=== PATIENT | male | born 1960 | race Caucasian/White ===

== ENCOUNTER 2016-11-03 16:17 | Inpatient (IN) | payer BC, OTHER ==
[~2016-11-03] VITALS: Ht 182.9 cm; Wt 104.0 kg
[2016-11-03 16:25] VITALS: Ht 182.9 cm; Wt 104.0 kg
--- NOTE | 2016-11-03 16:43 | ERA ---
ER Documentation Chief Complaint Date/Time DATE: 11/03/16 TIME: 16:42 Chief Complaint LEFT HAND/ARM PAIN HPI The patient is a 56-year-old male, presenting to the ER because of left index and left thumb pain for the last 5 days after he had left index finger surgery 6 days ago by the orthopedist . He was advised by his orthopedist to go to the ER because of severe pain and fever. The pain is 10/10, worse with trying to extend the index finger. He did complain of subjective fever, denies neck pain, chest pain, abdominal pain, vomiting, diarrhea, constipation. He does not smoke, drink Past medical history: None Past surgical history: Neck surgery in 2012 ROS All systems reviewed and are negative except as per history of present illness. Medications Home Meds Reported Medications Hydrocodone/Acetaminophen ([place] 10-325 Tablet) 1 Each Tablet, 1 EACH PO DAILY Y for PRN, TAB 11/03/16 Allergies Allergies: Coded Allergies: No Known Allergy (Unverified , 11/03/16) Physical Exam Vitals Vital Signs Date Time Temp Pulse Resp B/P Pulse Ox O2 Delivery O2 Flow Rate FiO2 11/03/16 16:25 98.8 90 19 147/80 98 Physical Exam Const: No acute distress. Head: Atraumatic. Eyes: Normal Conjunctiva. ENT: Normal External Ears, Nose and Mouth. Neck: Full range of motion. No meningismus. Resp: Clear to auscultation bilaterally. Cardio: Regular rate and rhythm, no murmurs. Abd: Soft, non distended, normal bowel sounds, non tender. Skin: No petechiae or rashes. Back: No midline or flank tenderness. Ext: Left hand is edematous, erythematous, warm to touch. he is unable to extend or flex the index and the thumb finger Neur: Awake and alert. No focal deficit Psych: Normal Mood and Affect. Result Diagram: 11/03/16 1700 11/03/16 1700 Results 24 hrs Laboratory Tests Test 11/03/16 17:00 Activated Partial Thromboplast Time 33.1Sec Alanine Aminotransferase (ALT/SGPT) 20IU/L Albumin 4.4g/dl Albumin/Globulin Ratio 1.15 Alkaline Phosphatase 53IU/L Anion Gap 16 Aspartate Amino Transf (AST/SGOT) 26IU/L Basophils # 0.010^3/ul Basophils % 0.3% Blood Urea Nitrogen 14mg/dl Calcium Level 9.9mg/dl Carbon Dioxide Level 30mmol/L Chloride Level 96mmol/L Creatinine 1.14mg/dl Direct Bilirubin 0.00mg/dl Eosinophils # 0.110^3/ul Eosinophils % 1.0% Globulin 3.80g/dl Glucose Level 101mg/dl Hematocrit 42.8% Hemoglobin 14.6g/dl INR International Normalized Ratio 1.00 Indirect Bilirubin 0.8mg/dl Lactic Acid Level 0.9mmol/L Lymphocytes # 1.610^3/ul Lymphocytes % 19.3% Mean Corpuscular Hemoglobin 31.3pg Mean Corpuscular Hemoglobin Concent 34.1g/dl Mean Corpuscular Volume 91.7fl Mean Platelet Volume 8.9fl Monocytes # 0.610^3/ul Monocytes % 7.0% Neutrophils # 6.010^3/ul Neutrophils % 72.4% Nucleated Red Blood Cells # 0.010^3/ul Nucleated Red Blood Cells % 0.0/100WBC Platelet Count 50215^3/UL Potassium Level 4.4mmol/L Prothrombin Time 13.2Sec Prothrombin Time Ratio 1.0 Red Blood Count 4.6610^6/ul Red Cell Distribution Width 13.4% Sodium Level 138mmol/L Total Bilirubin 0.8mg/dl Total Protein 8.2g/dl Urine Bilirubin NEGATIVE Urine Clarity CLEAR Urine Color LT. YELLOW Urine Glucose NEGATIVE% Urine Hemoglobin NEGATIVE Urine Ketones NEGATIVE Urine Leukocyte Esterase TRACE Urine Microscopic RBC 0-2/HPF Urine Microscopic WBC 0-2/HPF Urine Nitrite NEGATIVE Urine Specific [place] 1.010 Urine Squamous Epithelial Cells RARE Urine Total Protein NEGATIVE Urine Urobilinogen 0.2 E.U./dL Urine pH 6.0 White Blood Count 8.310^3/ul Current Medications Medications (Trade) Dose Ordered Sig/Gisele Route PRN Reason Start Time Stop Time Status Last Admin Dose Admin Morphine Sulfate (morphine) 4 mg ONCE STAT IV 11/03/16 16:47 11/03/16 16:50 DC 11/03/16 17:07 Ondansetron HCl (Zofran Inj) 4 mg ONCE STAT IV 11/03/16 16:47 11/03/16 16:50 DC 11/03/16 17:07 Vancomycin HCl 1 ea 1 ea X 1 ONLY IN E.R. STAT XX 11/03/16 16:47 11/03/16 16:50 DC Piperacillin Sod/ Tazobactam Sod 100 ml @ 200 mls/hr ONCE ONCE IVPB 11/03/16 17:00 11/03/16 17:29 DC 11/03/16 17:06 Vancomycin HCl/ Sodium Chloride (Vancocin/NS) 500 ml @ 125 mls/hr ONCE ONCE IVPB 11/03/16 20:00 11/03/16 23:59 Procedures/MDM EKG: Read by emergency physician Rate/Rhythm: Normal Sinus Rhythm 80 beats per min QRS, ST, T-waves: No ST elevation, no T wave inversion Impression: Normal EKG [place] [address] Radiology Main Line: [phone] DIAGNOSTIC IMAGING REPORT Patient: GELY CARMICHAEL : 1960 Age: 56 Sex: M MR #: [id number] DOS: 11/03/16 1647 Ordering MD: DAVID CHONG MD Location: E/R Room/Bed: PROCEDURE: XR Left Hand. CLINICAL INDICATION: Trauma. Left hand pain. TECHNIQUE: Three views. Frontal lateral and oblique images of the left hand were obtained. COMPARISON: No prior studies are available for comparison. FINDINGS: There is no fracture or dislocation. The soft tissues are normal. Articular surfaces are intact. There is no lytic or blastic lesion. There is a metal surgical device in the fifth proximal phalanx proximally medially. IMPRESSION: 1. Metal surgical device in the fifth proximal phalanx proximally medially. 2. Otherwise unremarkable images of the left hand. RPTAT: QQ .Caleb Cordero MD, Date Time Electronically viewed and signed by .Caleb Cordero MD, on 11/03/2016 17:33 .R/ CC: DAVID CHONG MD [place] [address] Radiology Main Line: [phone] DIAGNOSTIC IMAGING REPORT Patient: GELY CARMICHAEL : 1960 Age: 56 Sex: M MR #: [id number] DOS: 11/03/16 1647 Ordering MD: DAVID CHONG MD Location: E/R Room/Bed: PROCEDURE: XR Chest. CLINICAL INDICATION: Cough. Sepsis. TECHNIQUE: Single frontal view. COMPARISON: None. FINDINGS: There is mild left basilar atelectasis or pneumonia. The lungs are otherwise clear. The heart size is normal. There is no pleural effusion or pneumothorax. There has been prior cervical spine surgery with screws noted. IMPRESSION: 1. Mild left basilar atelectasis or pneumonia. 2. Prior cervical spine surgery. 3. Otherwise normal chest radiograph. RPTAT: QQ .Caleb Cordero MD, MD Date Time Electronically viewed and signed by .Caleb Cordero MD, MD on 11/03/2016 17:34 .R/ CC: DAVID CHONG MD MEDICAL MAKING DECISION: The patient is 56-year-old male, presenting with acute postoperative left hand cellulitis. He was treated with morphine 4 mg IV for pain, Zofran 4 mg IV for nausea, vancomycin IV, Zosyn IV with good response. The differential diagnoses considered include but are not limited to cellulitis , abscess, tenosynovitis Consultation: I have paged his orthopedist Jorge at 1800 hrs. Departure Diagnosis: Primary Impression: Cellulitis of left hand Condition: Stable Comments I discussed the findings with the patient. I discussed the patient with the on- call hospitalist Dr. Willams who was made aware of the lab, the treatment, the patient condition and that Dr Patel has been paged. The patient is admitted to medical surgery bed at 6:30 PM DAVID CHONG MD Nov 03, 2016 16:43 DAVID CHONG MD Nov 03, 2016 16:43
[2016-11-03] MEDS ORDERED: VANCOMYCIN IV PER PHARMACY XX STA (16:47)
[2016-11-03] MEDS ORDERED: ONDANSETRON 4 MG INJ IV STA (16:47)
[2016-11-03] MEDS ORDERED: morphine 4 MG/ML VIAL IV STA (16:47)
[2016-11-03] MEDS ORDERED: PIPER-TAZO 3.375 GM IV (PMX) 100 ML IVPB ONE (17:00)
[2016-11-03 17:10] LABS: BASOPHILS % 0.3 % (0.0-2.0); EOSINOPHILS # 0.1 10^3/ul (0.0-0.5); HEMATOCRIT 42.8 % (42.0-52.0); HEMOGLOBIN 14.6 g/dl (14.0-18.0); LYMPHOCYTES # 1.6 10^3/ul (0.8-2.9); LYMPHOCYTES % 19.3 % (15.0-51.0); MEAN CORPUSCULAR HEMOGLOBIN 31.3 pg (29.0-33.0); MEAN CORPUSCULAR HGB CONC 34.1 g/dl (32.0-37.0); MEAN CORPUSCULAR VOLUME 91.7 fl (82.0-101.0); MEAN PLATELET VOLUME 8.9 fl (7.4-10.4); MONOCYTE # 0.6 10^3/ul (0.3-0.9); NEUTROPHILS % 72.4 % (39.0-77.0); PLATELET COUNT 165 10^3/UL (140-440); RED BLOOD COUNT 4.66 10^6/ul (4.70-6.10); RED CELL DISTRIBUTION WIDTH 13.4 % (11.5-14.5); UNCORRECTED WBC 8.3 10^3/ul (4.8-10.8); WHITE BLOOD COUNT 8.3 10^3/ul (4.8-10.8)
[2016-11-03 17:18] LABS: CONDITION 1
[2016-11-03 17:19] LABS: ALBUMIN 4.4 g/dl (3.3-4.9)
[2016-11-03 17:20] LABS: ADD UMIC YES; POTASSIUM 4.4 mmol/L (3.5-5.1); PROTIME 13.2 Sec (12.2-14.2); URINE BILIRUBIN (Dip) NEGATIVE (NEGATIVE); URINE BLOOD (Dip) NEGATIVE (NEGATIVE); URINE COLOR LT. YELLOW (YELLOW); URINE GLUCOSE (Dip) NEGATIVE (NEGATIVE); URINE KETONES (Dip) NEGATIVE (NEGATIVE); URINE LEUKOCYTE ESTERASE (Dip) TRACE (NEGATIVE); URINE NITRITE (Dip) NEGATIVE (NEGATIVE); URINE TOTAL PROTEIN (Dip) NEGATIVE (NEGATIVE); URINE UROBILINOGEN (Dip) 0.2 E.U./dL (0.1-1.0)
[2016-11-03 17:21] LABS: PARTIAL THROMBOPLASTIN TIME 33.1 Sec (25.0-35.0)
[2016-11-03 17:22] LABS: ALBUMIN/GLOBULIN RATIO 1.15; BILIRUBIN,INDIRECT 0.8 mg/dl (0-1.1); BILIRUBIN,TOTAL 0.8 mg/dl (0.2-1.3); CREATININE 1.14 mg/dl (0.61-1.24); TOTAL PROTEIN 8.2 g/dl (6.1-8.1)
[2016-11-03 17:23] LABS: CALCIUM 9.9 mg/dl (8.4-10.2)
[2016-11-03] MEDS ORDERED: HYDR-902 PO (17:26)
--- NOTE | 2016-11-03 17:34 | RADRPT ---
PROCEDURE: XR Left Hand. CLINICAL INDICATION: Trauma. Left hand pain. TECHNIQUE: Three views. Frontal lateral and oblique images of the left hand were obtained. COMPARISON: No prior studies are available for comparison. FINDINGS: There is no fracture or dislocation. The soft tissues are normal. Articular surfaces are intact. There is no lytic or blastic lesion. There is a metal surgical device in the fifth proximal phalanx proximally medially. IMPRESSION: 1. Metal surgical device in the fifth proximal phalanx proximally medially. 2. Otherwise unremarkable images of the left hand. RPTAT: QQ .Caleb Cordero MD, Date Time Electronically viewed and signed by .Caleb Cordero MD, on 11/03/2016 17:33 .R/
--- NOTE | 2016-11-03 17:35 | RADRPT ---
PROCEDURE: XR Chest. CLINICAL INDICATION: Cough. Sepsis. TECHNIQUE: Single frontal view. COMPARISON: None. FINDINGS: There is mild left basilar atelectasis or pneumonia. The lungs are otherwise clear. The heart size is normal. There is no pleural effusion or pneumothorax. There has been prior cervical spine surgery with screws noted. IMPRESSION: 1. Mild left basilar atelectasis or pneumonia. 2. Prior cervical spine surgery. 3. Otherwise normal chest radiograph. RPTAT: QQ .Caleb Cordero MD, Date Time Electronically viewed and signed by .Caleb Cordero MD, on 11/03/2016 17:34 .R/
[2016-11-03 17:58] LABS: SQUAMOUS EPITHELIAL CELL,UR RARE; URINE RBCS 0-2 /HPF ([, 0])
[2016-11-03 19:15] VITALS: TEMP 99.8
[2016-11-03] MEDS ORDERED: ACETAMINOPHEN 325 MG TAB PO PRN (19:30)
[2016-11-03] MEDS ORDERED: VANCOMYCIN IV PER PHARMACY XX SCH (19:30)
[2016-11-03] MEDS ORDERED: DOCUSATE SODIUM 100 MG CAP PO PRN (19:30)
[2016-11-03] MEDS ORDERED: ONDANSETRON 4 MG TAB PO PRN (19:30)
[2016-11-03] MEDS ORDERED: NACL 0.9% 3 ML SYG IV SCH (19:30)
--- NOTE | 2016-11-03 19:43 | HP ---
DATE OF ADMISSION: 11/03/2016 URGENT CARE PHYSICIAN ASSISTANT: Dr. Teran, hand surgeon. CHIEF COMPLAINT: Left hand pain postoperatively. HISTORY OF PRESENT ILLNESS: This is a pleasant 56-year-old gentleman with no significant past medic al history, but past surgical history of left hand surgery secondary to trigger finger on 10/29/[address] Teran. He was discharged home and has been having increased pain, swelling, and discomf ort in his left hand. He is not able to flex or extend his hand secondary to the swelling and pain. Today, the patient was seen and evaluated the orthopedic surgeon's office and he was sent to the [facility] for further evaluation and treatment. Upon arrival, the x-ray of the right hand showed medi edita/surgical device in the fifth proximal phalanx ____; otherwise, unremarkable image of left hand. His WBC is within normal limits at 8.3. He was treated with vancomycin, Zofran, morphine, and Zosy n. The hand surgeon, Dr. Teran, has been consulted from emergency room. At this time, the patien t continues to complain of left hand pain. No change in visual acuity, diplopia, photophobia. No h eadache, dizziness, lightheadedness. No fever, chills, weight gain, weight loss, anorexia. No dysu ele, hematuria, urgency, incontinence. No trauma to his hand since surgery. There is decreased ran ge of motion in his left upper hand. Otherwise 12 review of systems has been found to be negative. PAST MEDICAL AND SURGICAL HISTORY: Left hand surgery. MEDICATIONS: [place] 10/325. ALLERGIES: NO KNOWN DRUG ALLERGIES. FAMILY HISTORY: Noncontributory. SOCIAL HISTORY: Negative x3 for smoking, alcohol, illicit drug use. He is with kids. REVIEW OF SYSTEMS: As above per HPI, otherwise 12 review of systems has been found to be negative. PHYSICAL EXAMINATION: VITAL SIGNS: Temperature 98.8, pulse 90, respiration 19, blood pressure 147/80, saturation 98% in r oom air. GENERAL APPEARANCE: The patient is lying in bed comfortably without any distress. He is awake, celso rt, oriented. He is able to answer my questions properly. EYES AND EARS, NOSE, THROAT: Conjunctivae and lids are normal. Pupils are normal. Extraocular mov ements normal. Hearing grossly normal. Lips are normal. Oral mucosa is moist. NECK: Supple. Trachea is midline. No lymphadenopathy. RESPIRATORY: Effort is normal. Clear to auscultation bilaterally. CARDIOVASCULAR: Normal S1, S2. Regular rhythm and rate. No murmur, no bruits, no edema. Peripher al pulses, radial pulses palpable. Cap refill is normal. CHEST: Normal expansion of thorax during inspiration. GASTROINTESTINAL: Abdomen is soft, nontender, not distended. Bowel sounds present. No guarding, n o rebound. GENITOURINARY: Deferred. MUSCULOSKELETAL: Lower extremities bilaterally within normal limits, full range of motion. Right u pper extremity within normal limits, full range of motion. Left upper extremity is full range of mo tion in the shoulder and elbow, although decreased range of motion in the wrist and hand. He is not able to flex or extend his hand. There is swelling of his hand. Erythema in the dorsal aspect of the left hand. There is no evidence of compartment syndrome. NEUROLOGIC: Cranial nerves II through XII are grossly intact. PSYCHIATRIC: Normal judgment and insight. Alert and oriented x3. Mood and affect is normal. LABORATORY WORK AND IMAGING: WBC 8.3, hemoglobin 14.3, hematocrit 42.8, platelets 165. Sodium 138, potassium 4.4, chloride 93, bicarbonate 30, BUN 14, creatinine 1.14, glucose 101. Lactic acid 0.9. LFTs all within normal limits. Urinalysis negative except leukocyte esterase is trace. PT 13.2, INR is 1.0. ASSESSMENT AND PLAN: 1. Left hand cellulitis and erythema. This is postoperative day #6. Hand surgeon has been consult ed from course of emergency room. The patient has been placed on prophylactic IV antibiotics. Will place the patient on pain medication. We will obtain a CT of the hand. This time, the patient arriola s not qualify for MRI secondary to the metal in his hand, which is evident in this x-ray. Keep the arm elevated. 2. For deep venous thrombosis prophylaxis, on sequential compression devices. 3. For gastrointestinal prophylaxis, not indicated at this time. Total time that was spent for evaluation of patient and admission workup, 45 minutes. Dictated By: BROWN IZAGUIRRE/DORINDA Conf#: [id number] DID#: [id number]
[2016-11-03] MEDS ORDERED: SOD CHLORIDE 0.9% 100 ML ONE (19:48)
[2016-11-03] MEDS ORDERED: IOHEXOL 300MG/ML 150 ML BTL ONE (19:48)
--- NOTE | 2016-11-03 19:54 | CONS ---
DATE OF ADMISSION: 11/03/2016 DATE OF CONSULTATION: 11/03/2016 TYPE OF CONSULTATION: Infectious disease. REASON FOR CONSULTATION: Antibiotic management. HISTORY OF PRESENT ILLNESS: Rafa Peters is a 56-year-old male patient of Dr. Villa. He presen abdifatah to the emergency room because left index and left thumb pain over the last 5 days. He had left index finger surgery 6 days ago for a trigger finger by Dr. Villa. He was seen today by Dr. Lise sorensen's PA, and was advised to go to the emergency room because of the pain and fever. Pain is 10/10. PAST MEDICAL HISTORY: Unremarkable. PAST SURGICAL HISTORY: Neck surgery in 2012. SOCIAL HISTORY: Does not smoke, drink, or abuse drugs. ALLERGIES: NONE TO PENICILLIN, SULFA, OR FOODS. MEDICATIONS: Per chart. REVIEW OF SYSTEMS: Noncontributory. PHYSICAL EXAMINATION: GENERAL: The patient is a well-developed, well-nourished male, alert, responsive, in no acute distr ess. VITAL SIGNS: Stable. He is afebrile. SKIN: Without generalized rash. HEENT: Within normal limits. NECK: Supple. LYMPH NODES: None palpable. CHEST: Decreased breath sounds at the bases. HEART: Without murmur or gallop. ABDOMEN: Soft, nontender without organosplenomegaly or masses. EXTREMITIES: Left hand is edematous, erythematous, warm to the touch. Cannot extend or flex his in dex and thumb fingers. RECTAL AND GENITAL: Deferred. NEUROLOGIC: No focal neurological abnormalities. ANCILLARY DATA: White count is 8.3, H and H 14.6 and 42.8, platelet count 165,000. BUN and creatin ine 14/1.14. IMPRESSION AND PLAN: The patient was started on vancomycin and ceftriaxone. Actually received Zosy n first and was changed to ceftriaxone. I concur with this regimen. Of note, is the fact that his chest x-ray shows some mild left basilar atelectasis or pneumonia, and his hand x-ray shows metallic surgical device in the fifth proximal phalanx proximally, medially. We will continue him on curren t therapy. I will dictate my findings to Dr. Villa and also to the hospitalist. Dictated By: MITESH ALEJANDRO MD, JD/DORINDA Conf#: [id number] DID#: [id number] CC: KARLI VILLA MD;*[facility]*
[2016-11-03] MEDS ORDERED: VANCOMYCIN 1.75 GM in SOD CHLORIDE 0.9% 500 ML IVPB ONE (20:00)
[2016-11-03] MEDS: morphine 2 MG INJ IV PRN (20:19)
--- NOTE | 2016-11-03 21:40 | RADRPT ---
PROCEDURE: CT scan left hand and wrist with contrast CLINICAL INDICATION: Left hand cellulitis TECHNIQUE: CT scan of the left hand and wrist was performed on the high-resolution multidetector C T scanner. 100 cc of Omnipaque-300 was injected intravenously. Axial images were obtained throughou t the left hand and wrist with coronal and sagittal reformatted images. Images were reviewed on a h igh-resolution PACS workstation. CTDI = 7.43 mGy, and the DLP = 196.8 mGy-cm. One or more of the following dose reduction techniques were used: - Automated exposure control. - Adjustment of the mA and/or kV according to patient size. - Use of iterative reconstruction technique. COMPARISON: X-rays of the left hand of 11/03/2016 FINDINGS: There is appearance of a small anchor at the radial aspect of the base of the proximal phalanx of th e fifth finger. No fracture or dislocation is seen. There is no periosteal reaction, bone cortical loss or rarefaction of bone suggestive of osteomyelitis seen. There are small oval lucencies with s clerotic rims suggestive of subchondral cysts or perhaps erosions in all carpal bones and at the bas e of the first metacarpal and in the head of the first, second, third and fifth metacarpals with the largest approximately 1 cm in the distal capitate and 9 mm in the adjacent trapezoid with appearanc e of the additional changes of osteoarthrosis at the joint between these bones. No focal fluid manuela ection with contrast enhancing rim suggestive of soft tissue abscess is seen. IMPRESSION: No evidence of soft tissue abscess seen as noted above. No evidence of osteomyelitis seen. Small ova l lucencies with sclerotic rims suggestive of subchondral cysts or perhaps erosions in all carpal michaela brandon and at the base of the first metacarpal and in the heads of the first, second, third and fifth m etacarpals with the largest approximately 1 cm in the distal capitate and 9 mm in the adjacent trape zoid with appearance of the additional changes of osteoarthrosis at the joint between these bones. Please see above. RPTAT: HJES .Lake Noland MD, MD Date Time Electronically viewed and signed by .Lake Noland MD, on 11/03/2016 21:40 .S/
[2016-11-03 22:13] VITALS: BP 161/92; RESP 20
[2016-11-03] MEDS: 1/2 NS + KCL 20 MEQ 1,000 ML IV SCH (23:04)
[2016-11-03] MEDS: CEFTRIAXONE 1 GM/50 ML (PMX) 50 ML IVPB SCH (23:07)
[2016-11-04] VITALS: BP 142/85; PULSE 84; RESP 18
[2016-11-04] MEDS: morphine 2 MG INJ IV PRN ×2 (01:35→08:16)
[2016-11-04 06:04] LABS: POTASSIUM 3.9 mmol/L (3.5-5.1)
[2016-11-04 06:05] LABS: BASOPHILS % 0.3 % (0.0-2.0); EOSINOPHILS # 0.1 10^3/ul (0.0-0.5); EOSINOPHILS % 1.1 % (0.0-7.0); HEMATOCRIT 38.4 % (42.0-52.0); HEMOGLOBIN 13.3 g/dl (14.0-18.0); LYMPHOCYTES # 1.3 10^3/ul (0.8-2.9); LYMPHOCYTES % 19.4 % (15.0-51.0); MEAN CORPUSCULAR HEMOGLOBIN 31.5 pg (29.0-33.0); MEAN CORPUSCULAR HGB CONC 34.5 g/dl (32.0-37.0); MEAN CORPUSCULAR VOLUME 91.3 fl (82.0-101.0); MEAN PLATELET VOLUME 9.1 fl (7.4-10.4); MONOCYTE # 0.7 10^3/ul (0.3-0.9); MONOCYTES % 9.8 % (0.0-11.0); NEUTROPHIL # 4.7 10^3/ul (1.6-7.5); NEUTROPHILS % 69.4 % (39.0-77.0); PLATELET COUNT 145 10^3/UL (140-440); RED BLOOD COUNT 4.21 10^6/ul (4.70-6.10); RED CELL DISTRIBUTION WIDTH 13.4 % (11.5-14.5); UNCORRECTED WBC 6.8 10^3/ul (4.8-10.8); WHITE BLOOD COUNT 6.8 10^3/ul (4.8-10.8)
[2016-11-04 06:07] LABS: CREATININE 1.02 mg/dl (0.61-1.24)
[2016-11-04 06:08] LABS: MAGNESIUM 1.8 mg/dl (1.7-2.5)
[2016-11-04 06:09] LABS: CONDITION 1
[2016-11-04] MEDS: VANCOMYCIN 1.5 GM in SOD CHLORIDE 0.9% 250 ML IVPB SCH ×2 (06:21→17:27)
[2016-11-04] MEDS: PANTOPRAZOLE (EC) 40 MG TAB PO SCH (06:21)
[2016-11-04 08:09] VITALS: BP 118/72; RESP 16
[2016-11-04] MEDS: OXYCODONE/ACETAMINOPHEN (5/325) TAB PO PRN ×3 (11:32→23:04)
[2016-11-04] MEDS: 1/2 NS + KCL 20 MEQ 1,000 ML IV SCH ×2 (11:50→17:25)
--- NOTE | 2016-11-04 12:03 | PN ---
HOSPITALIST PROGRESS NOTE DATE: 11/04/2016 TIME OF EVALUATION: 11:30 SUBJECTIVE DATA: Complains of severe left hand pain. Continues to have low- grade fever. OBJECTIVE DATA: VITAL SIGNS: Temperature 99.4, pulse rate 70, respiratory rate 16, blood pressure 118/72, oxygen saturation 96% on room air. GENERAL: This is a slightly obese male lying in bed in no apparent distress. HEENT: Head normocephalic and atraumatic. Eyes: Anicteric sclerae. Conjunctivae clear. ENT: Nasal septum is midline. Oral mucosa is moist. NECK: Supple. No JVD noticed. RESPIRATORY: Bilaterally clear to auscultation. No adventitious breath sounds heard. No use of accessory muscles of respiration. CARDIAC: Regular rate and rhythm. No murmurs. ABDOMEN: Soft, nontender, and nondistended. Bowel sounds positive in all 4 quadrants. GENITOURINARY: Deferred. EXTREMITIES: No cyanosis, no clubbing. Bilateral lower extremity pedal pulses palpable. Left palmar edema and erythema. No loss of sensation on the fingers of the left hand. NEUROLOGIC: The patient is awake, alert, and oriented. Cranial nerves are grossly intact. LABORATORY AND DIAGNOSTIC DATA: WBC 6.8, hemoglobin 13.3, hematocrit 38.4, platelet count 145. Sodium 138, potassium 3.9, chloride 99, carbon dioxide 27, anion gap 16, BUN 13, creatinine 1.02, glucose 125, calcium 9.0, magnesium 1.8. ASSESSMENT AND PLAN: 1. Left hand cellulitis and erythema. Continue antibiotics. The patient recently had a left hand surgery. The patient's surgeon has been notified. 2. Systemic inflammatory response syndrome secondary to #1. Continue antibiotics. 3. Fluid, electrolytes, and nutrition. Continue regular diet. 4. Gastrointestinal and deep venous thrombosis prophylaxis with bilateral sequential compression devices. 5. Gastrointestinal prophylaxis with proton pump inhibitors. 6. Plan. Continue antibiotics. Continue pain control. Elevate LUE. Await recommendations from hand surgeon. Case discussed with Dr. Metzger. SPRING METZGER MD, AM/DORINDA Conf#: [id number] DID#: [id number] MTDD
--- NOTE | 2016-11-04 16:13 | PN ---
DATE: 11/04/2016 INFECTIOUS DISEASE PROGRESS NOTE SUBJECTIVE: Patient is alert, complaining of left hand pain with decreased range of motion. No fev ers. No vomiting or diarrhea. He has a T-max yesterday was 99.8. MICROBIOLOGY: Urine cultures have been negative. ANTIMICROBIALS: Patient is on: 1. IV vancomycin. 2. Rocephin. PHYSICAL EXAMINATION: GENERAL: This is a well-developed, middle-aged white man who is alert, in no distress. HEENT: Head atraumatic, normocephalic. Sclerae anicteric. Buccal mucosa pink. NECK: Supple, trachea midline. CHEST: Rise symmetrical. Breath sounds clear. HEART: S1, S2. ABDOMEN: Soft. Bowel tones present. EXTREMITIES: Left hand slight edema. No erythema, decreased range of motion. ASSESSMENT: 1. Left hand cellulitis, status post recent surgery. 2. Status post systemic inflammatory response syndrome secondary to above. PLAN: The patient remains stable, erythema and swelling improving. The patient still has significan t pain and decreased range of motion in his left hand. We will continue elevation. Await for hand surgery evaluation. Dictated By: PAUL RASHID [employer]PER[employer] for MITESH GANNON/DORINDA Conf#: [id number] DID#: [id number]
[2016-11-04 20:03] VITALS: BP 109/59; RESP 18
[2016-11-04] MEDS: CEFTRIAXONE 1 GM/50 ML (PMX) 50 ML IVPB SCH (21:20)
[2016-11-05] MEDS: 1/2 NS + KCL 20 MEQ 1,000 ML IV SCH ×3 (01:10→18:15)
[2016-11-05 05:55] LABS: BASOPHILS % 0.3 % (0.0-2.0); EOSINOPHILS # 0.1 10^3/ul (0.0-0.5); EOSINOPHILS % 2.1 % (0.0-7.0); HEMATOCRIT 39.2 % (42.0-52.0); HEMOGLOBIN 13.5 g/dl (14.0-18.0); LYMPHOCYTES # 1.2 10^3/ul (0.8-2.9); LYMPHOCYTES % 19.3 % (15.0-51.0); MEAN CORPUSCULAR HEMOGLOBIN 31.7 pg (29.0-33.0); MEAN CORPUSCULAR HGB CONC 34.4 g/dl (32.0-37.0); MEAN CORPUSCULAR VOLUME 92.2 fl (82.0-101.0); MEAN PLATELET VOLUME 8.7 fl (7.4-10.4); MONOCYTE # 0.6 10^3/ul (0.3-0.9); MONOCYTES % 8.9 % (0.0-11.0); NEUTROPHIL # 4.4 10^3/ul (1.6-7.5); NEUTROPHILS % 69.4 % (39.0-77.0); PLATELET COUNT 142 10^3/UL (140-440); RED BLOOD COUNT 4.25 10^6/ul (4.70-6.10); RED CELL DISTRIBUTION WIDTH 13.2 % (11.5-14.5); UNCORRECTED WBC 6.4 10^3/ul (4.8-10.8); WHITE BLOOD COUNT 6.4 10^3/ul (4.8-10.8)
[2016-11-05 06:07] LABS: CONDITION 1
[2016-11-05] MEDS: morphine 4 MG/ML VIAL IV PRN ×4 (06:12→21:57)
[2016-11-05] MEDS: PANTOPRAZOLE (EC) 40 MG TAB PO SCH (06:12)
[2016-11-05 06:28] LABS: PHOSPHORUS 3.5 mg/dl (2.5-4.9)
[2016-11-05 06:29] LABS: POTASSIUM 4.4 mmol/L (3.5-5.1)
[2016-11-05 06:32] LABS: CALCIUM 8.8 mg/dl (8.4-10.2); CREATININE 0.92 mg/dl (0.61-1.24)
[2016-11-05 06:54] LABS: CHOL/HDL RATIO 4.6 RATIO
[2016-11-05] MEDS: VANCOMYCIN 1.5 GM in SOD CHLORIDE 0.9% 250 ML IVPB SCH ×2 (07:37→18:12)
[2016-11-05 08:01] VITALS: BP 120/65; RESP 16
--- NOTE | 2016-11-05 08:40 | PN ---
Date/Time of Note Date/Time of Note DATE: 11/05/16 TIME: 08:40 Assessment/Plan VTE Prophylaxis VTE Prophylaxis Intervention: SCD's Lines/Catheters IV [facility] Type [facility]from [facility] Saline Lock Assessment/Plan Chief Complaint/Hosp Course 1. Left hand cellulitis and erythema. Continue antibiotics. The patient recently had a left hand surgery. The patient's surgeon has been notified. 2. Systemic inflammatory response syndrome secondary to #1. Continue antibiotics. 3. Fluid, electrolytes, and nutrition. Continue regular diet. 4. Gastrointestinal and deep venous thrombosis prophylaxis with bilateral sequential compression devices. 5. Gastrointestinal prophylaxis with proton pump inhibitors. 6. Plan. Continue antibiotics. Continue pain control. Elevate LUE. Await recommendations from hand surgeon. Case discussed with Dr. Deutsch. Made al call to Dr. Teran's office and informed about the consult. Problems: Subjective 24 Hr Interval Summary Free Text/Dictation Continues to have left hand pain. Exam/Review of Systems Vital Signs Vitals Vital Signs Date Time Temp Pulse Resp B/P Pulse Ox O2 Delivery O2 Flow Rate FiO2 11/05/16 08:01 98.8 83 16 120/65 93 11/04/16 00:00 Room Air Intake and Output 11/04/16 11/04/16 11/05/16 15:00 23:00 07:00 Intake Total 250 ml 1470 ml 870 ml Output Total 1000 ml 900 ml Balance 250 ml 470 ml -30 ml Exam GENERAL: This is a slightly obese male lying in bed in no apparent distress. HEENT: Head normocephalic and atraumatic. Eyes: Anicteric sclerae. Conjunctivae clear. ENT: Nasal septum is midline. Oral mucosa is moist. NECK: Supple. No JVD noticed. RESPIRATORY: Bilaterally clear to auscultation. No adventitious breath sounds heard. No use of accessory muscles of respiration. CARDIAC: Regular rate and rhythm. No murmurs. ABDOMEN: Soft, nontender, and nondistended. Bowel sounds positive in all 4 quadrants. GENITOURINARY: Deferred. EXTREMITIES: No cyanosis, no clubbing. Bilateral lower extremity pedal pulses palpable. Left palmar edema and erythema. No loss of sensation on the fingers of the left hand. NEUROLOGIC: The patient is awake, alert, and oriented. Cranial nerves are grossly intact. Results Result Diagram: 11/05/16 0525 11/05/16 0515 Results 24 hrs Laboratory Tests Test 11/05/16 05:15 11/05/16 05:25 Anion Gap 13 Blood Urea Nitrogen 12 Calcium Level 8.8 Carbon Dioxide Level 28 Chloride Level 101 Cholesterol Level 158 Cholesterol/HDL Ratio 4.6 Creatinine 0.92 Glucose Level 96 HDL Cholesterol 34 LDL Cholesterol, Calculated 109 Potassium Level 4.4 Sodium Level 138 Triglycerides Level 77 Basophils # 0.0 Basophils % 0.3 Eosinophils # 0.1 Eosinophils % 2.1 Hematocrit 39.2 L Hemoglobin 13.5 L Hemoglobin A1c 5.4 Lymphocytes # 1.2 Lymphocytes % 19.3 Magnesium Level 2.0 Mean Corpuscular Hemoglobin 31.7 Mean Corpuscular Hemoglobin Concent 34.4 Mean Corpuscular Volume 92.2 Mean Platelet Volume 8.7 Monocytes # 0.6 Monocytes % 8.9 Neutrophils # 4.4 Neutrophils % 69.4 Nucleated Red Blood Cells # 0.0 Nucleated Red Blood Cells % 0.0 Phosphorus Level 3.5 Platelet Count 142 Red Blood Count 4.25 L Red Cell Distribution Width 13.2 Vancomycin Level Trough 10.9 White Blood Count 6.4 Medications Medications Current Medications Ceftriaxone Sodium 50 ml @ 100 mls/hr Q24H IVPB Last administered on 21:20; Admin Dose 100 MLS/HR; Start 11/03/16 at 19:30 Potassium Chloride/Sodium Chloride (1/2 NS + KCl 20 Meq) 1,000 ml @ 75 mls/hr [id number] IV Last administered on 11/04/16 17:25; Admin Dose 75 MLS/HR; Start at 22:30 Ondansetron HCl (Zofran Tab) 4 mg Q6H PRN PO NAUSEA AND/OR VOMITING; Start 08/10 at 19:30 Acetaminophen (Tylenol Tab) 650 mg Q6H PRN PO PAIN LEVEL 1-3 OR FEVER; Start at 19:30 Oxycodone/ Acetaminophen (Percocet (5/ 325)) 1 tab Q6H PRN PO MODERATE PAIN LEVEL 4-6 Last administered on 11/04/16 23:04; Admin Dose 1 TAB; Start at 19:30 Docusate Sodium (Colace) 100 mg Q12H PRN PO CONSTIPATION; Start 11/03/16 at 19: 30 Pantoprazole 40 mg 40 mg DAILY@06 PO Last administered on 11/05/16 06:12; Admin Dose 40 MG; Start 11/04/16 at 06:00 Vancomycin HCl/ Sodium Chloride (Vancocin/NS) 250 ml @ 83.333 mls/ hr Q12H IVPB Last administered on 11/05/16 07:37; Admin Dose 83.333 MLS/HR; Start 09/10 at 06:00 Morphine Sulfate (morphine) 4 mg Q4H PRN IV SEVERE PAIN LEVEL 7-10 Last administered on 11/05/16 06:12; Admin Dose 4 MG; Start 11/04/16 at 11:30 SPRING LARRY NP Nov 05, 2016 08:40
--- NOTE | 2016-11-05 14:50 | CONS ---
Date/Time of Note Date/Time of Note DATE: 11/05/16 TIME: 14:47 Consult Date/Type/Reason Admit Date/Time Nov 03, 2016 at 18:41 Initial Consult Date Type of Consultation: id Subjective no acute changes, awake, c/o RUE pain, no fevers, nad Objective Vital Signs Date Time Temp Pulse Resp B/P Pulse Ox O2 Delivery O2 Flow Rate FiO2 11/05/16 08:01 98.8 83 16 120/65 93 11/04/16 00:00 Room Air Intake and Output 11/04/16 11/04/16 11/05/16 15:00 23:00 07:00 Intake Total 250 ml 1470 ml 870 ml Output Total 1000 ml 900 ml Balance 250 ml 470 ml -30 ml Results/Medications Result Diagram: 11/05/1625 11/05/16 0515 Results 24 hrs Laboratory Tests Test 11/05/16 05:15 11/05/16 05:25 Anion Gap 13 Blood Urea Nitrogen 12 Calcium Level 8.8 Carbon Dioxide Level 28 Chloride Level 101 Cholesterol Level 158 Cholesterol/HDL Ratio 4.6 Creatinine 0.92 Glucose Level 96 HDL Cholesterol 34 LDL Cholesterol, Calculated 109 Potassium Level 4.4 Sodium Level 138 Triglycerides Level 77 Basophils # 0.0 Basophils % 0.3 Eosinophils # 0.1 Eosinophils % 2.1 Hematocrit 39.2 L Hemoglobin 13.5 L Hemoglobin A1c 5.4 Lymphocytes # 1.2 Lymphocytes % 19.3 Magnesium Level 2.0 Mean Corpuscular Hemoglobin 31.7 Mean Corpuscular Hemoglobin Concent 34.4 Mean Corpuscular Volume 92.2 Mean Platelet Volume 8.7 Monocytes # 0.6 Monocytes % 8.9 Neutrophils # 4.4 Neutrophils % 69.4 Nucleated Red Blood Cells # 0.0 Nucleated Red Blood Cells % 0.0 Phosphorus Level 3.5 Platelet Count 142 Red Blood Count 4.25 L Red Cell Distribution Width 13.2 Vancomycin Level Trough 10.9 White Blood Count 6.4 Medications Current Medications Ceftriaxone Sodium 50 ml @ 100 mls/hr Q24H IVPB Last administered on 21:20; Admin Dose 100 MLS/HR; Start 11/03/16 at 19:30 Potassium Chloride/Sodium Chloride (1/2 NS + KCl 20 Meq) 1,000 ml @ 75 mls/hr [id number] IV Last administered on 11/04/16 17:25; Admin Dose 75 MLS/HR; Start at 22:30 Ondansetron HCl (Zofran Tab) 4 mg Q6H PRN PO NAUSEA AND/OR VOMITING; Start 08/10 at 19:30 Acetaminophen (Tylenol Tab) 650 mg Q6H PRN PO PAIN LEVEL 1-3 OR FEVER; Start at 19:30 Oxycodone/ Acetaminophen (Percocet (5/ 325)) 1 tab Q6H PRN PO MODERATE PAIN LEVEL 4-6 Last administered on 11/04/16 23:04; Admin Dose 1 TAB; Start at 19:30 Docusate Sodium (Colace) 100 mg Q12H PRN PO CONSTIPATION; Start 11/03/16 at 19: 30 Pantoprazole 40 mg 40 mg DAILY@06 PO Last administered on 11/05/16 06:12; Admin Dose 40 MG; Start 11/04/16 at 06:00 Vancomycin HCl/ Sodium Chloride (Vancocin/NS) 250 ml @ 83.333 mls/ hr Q12H IVPB Last administered on 11/05/16 07:37; Admin Dose 83.333 MLS/HR; Start 09/10 at 06:00 Morphine Sulfate (morphine) 4 mg Q4H PRN IV SEVERE PAIN LEVEL 7-10 Last administered on 11/05/16 14:36; Admin Dose 4 MG; Start 11/04/16 at 11:30 Assessment/Plan Chief Complaint/Hosp Course ANTIMICROBIALS: 1. IV vancomycin. 2. Rocephin. PHYSICAL EXAMINATION: GENERAL: This is a well-developed, middle-aged white man who is alert, in no distress. HEENT: Head atraumatic, normocephalic. Sclerae anicteric. Buccal mucosa pink. NECK: Supple, trachea midline. CHEST: Rise symmetrical. Breath sounds clear. HEART: S1, S2. ABDOMEN: Soft. Bowel tones present. EXTREMITIES: Left hand with edema, trace erythema, decreased range of motion and severe pain. ASSESSMENT: 1. Left hand cellulitis, status post recent surgery. 2. Status post systemic inflammatory response syndrome secondary to above. PLAN: The patient remains stable. The patient still has significant pain and decreased range of motion in his left hand. We will continue abx and elevation. Await for hand surgery evaluation. DW staff SOPHIE Ambriz Macido Problems: PAUL RASHID NP Nov 05, 2016 14:50
[2016-11-05] MEDS: OXYCODONE/ACETAMINOPHEN (5/325) TAB PO PRN (18:08)
[2016-11-05] MEDS: CEFTRIAXONE 1 GM/50 ML (PMX) 50 ML IVPB SCH (19:53)
[2016-11-05 20:08] VITALS: BP 120/67; RESP 18
[2016-11-06] MEDS: 1/2 NS + KCL 20 MEQ 1,000 ML IV SCH ×2 (03:50→17:27)
[2016-11-06] MEDS: VANCOMYCIN 1.5 GM in SOD CHLORIDE 0.9% 250 ML IVPB SCH ×2 (05:44→17:27)
[2016-11-06] MEDS: PANTOPRAZOLE (EC) 40 MG TAB PO SCH (05:44)
[2016-11-06 05:54] LABS: BASOPHILS % 0.3 % (0.0-2.0); EOSINOPHILS # 0.1 10^3/ul (0.0-0.5); EOSINOPHILS % 1.9 % (0.0-7.0); HEMATOCRIT 38.5 % (42.0-52.0); HEMOGLOBIN 13.2 g/dl (14.0-18.0); LYMPHOCYTES # 1.2 10^3/ul (0.8-2.9); LYMPHOCYTES % 17.2 % (15.0-51.0); MEAN CORPUSCULAR HEMOGLOBIN 31.4 pg (29.0-33.0); MEAN CORPUSCULAR HGB CONC 34.3 g/dl (32.0-37.0); MEAN CORPUSCULAR VOLUME 91.3 fl (82.0-101.0); MEAN PLATELET VOLUME 9.3 fl (7.4-10.4); MONOCYTE # 0.6 10^3/ul (0.3-0.9); MONOCYTES % 8.6 % (0.0-11.0); NEUTROPHIL # 4.9 10^3/ul (1.6-7.5); PLATELET COUNT 150 10^3/UL (140-440); RED BLOOD COUNT 4.21 10^6/ul (4.70-6.10); RED CELL DISTRIBUTION WIDTH 12.8 % (11.5-14.5); UNCORRECTED WBC 6.8 10^3/ul (4.8-10.8); WHITE BLOOD COUNT 6.8 10^3/ul (4.8-10.8)
[2016-11-06 05:57] LABS: CONDITION 1
[2016-11-06 06:25] LABS: MAGNESIUM 2.1 mg/dl (1.7-2.5)
[2016-11-06 06:32] LABS: POTASSIUM 4.1 mmol/L (3.5-5.1)
[2016-11-06 06:35] LABS: CALCIUM 9.1 mg/dl (8.4-10.2); CREATININE 0.93 mg/dl (0.61-1.24)
[2016-11-06 08:00] VITALS: BP 129/85; RESP 18
[2016-11-06] MEDS: morphine 4 MG/ML VIAL IV PRN ×4 (08:38→22:30)
--- NOTE | 2016-11-06 10:32 | PN ---
Date/Time of Note Date/Time of Note DATE: 11/06/16 TIME: 10:30 Assessment/Plan VTE Prophylaxis VTE Prophylaxis Intervention: SCD's Lines/Catheters IV Catheter Type (from Nrs): Peripheral IV Assessment/Plan Chief Complaint/Hosp Course 1. Left hand cellulitis and erythema. Continue antibiotics. The patient recently had a left hand surgery. The patient's surgeon has been notified. 2. Systemic inflammatory response syndrome secondary to #1. Continue antibiotics. 3. Fluid, electrolytes, and nutrition. Continue regular diet. 4. Gastrointestinal and deep venous thrombosis prophylaxis with bilateral sequential compression devices. 5. Gastrointestinal prophylaxis with proton pump inhibitors. 6. Plan. Continue antibiotics. Continue pain control. Elevate LUE. Await recommendations from hand surgeon. Case discussed with Dr. Deutsch. Made a call to Dr. Teran's office on 11/05/2016. As per the office staff Dr. Teran is out of town. I was able to speak with Dr. Teran's PA later in the afternoon of 11/05/2016. The PA was informed that the patient is running fevers and has significant pain around the surgical site. As per the PA she was going to talk to Dr. Teran and get back to me. Made a call to Dr. Teran's office on 11/06/2016 and informed the front office staff that we have not heard back from Dr. Teran. The staff was also informed that the patient is running high fevers. Around 1040 AM on 11/06/2016, I received a call from REGAN De La Cruz of Dr. Teran. As per Dorothy, Dr. Teran is making arrangements to have one of his colleagues come and see this patient and do the necessary interventions. Dorothy was informed that the hospital management is willing to provide temporary privileges (if they don't have privileges) to the surgeon(s) whom Dr. Teran delegate to see this patient. Problems: Subjective 24 Hr Interval Summary Free Text/Dictation Had febrile episodes last night and today morning. Exam/Review of Systems Vital Signs Vitals Vital Signs Date Time Temp Pulse Resp B/P Pulse Ox O2 Delivery O2 Flow Rate FiO2 11/06/16 08:36 98.8 11/06/16 08:00 79 18 129/85 94 11/04/16 00:00 Room Air Intake and Output 11/05/16 11/05/16 11/06/16 15:00 23:00 07:00 Intake Total 250 ml 1760 ml 1005 ml Output Total 750 ml 900 ml Balance 250 ml 1010 ml 105 ml Exam GENERAL: This is a slightly obese male lying in bed in no apparent distress. HEENT: Head normocephalic and atraumatic. Eyes: Anicteric sclerae. Conjunctivae clear. ENT: Nasal septum is midline. Oral mucosa is moist. NECK: Supple. No JVD noticed. RESPIRATORY: Bilaterally clear to auscultation. No adventitious breath sounds heard. No use of accessory muscles of respiration. CARDIAC: Regular rate and rhythm. No murmurs. ABDOMEN: Soft, nontender, and nondistended. Bowel sounds positive in all 4 quadrants. GENITOURINARY: Deferred. EXTREMITIES: No cyanosis, no clubbing. Bilateral lower extremity pedal pulses palpable. Left palmar edema. No loss of sensation on the fingers of the left hand. Range of motion of the fingers and left hand improved. NEUROLOGIC: The patient is awake, alert, and oriented. Cranial nerves are grossly intact. Results Result Diagram: 11/06/1651011/06/16 0511 Results 24 hrs Laboratory Tests Test 11/06/16 05:11 Anion Gap 17 H Basophils # 0.0 Basophils % 0.3 Blood Urea Nitrogen 12 Calcium Level 9.1 Carbon Dioxide Level 27 Chloride Level 100 Creatinine 0.93 Eosinophils # 0.1 Eosinophils % 1.9 Glucose Level 92 Hematocrit 38.5 L Hemoglobin 13.2 L Lymphocytes # 1.2 Lymphocytes % 17.2 Magnesium Level 2.1 Mean Corpuscular Hemoglobin 31.4 Mean Corpuscular Hemoglobin Concent 34.3 Mean Corpuscular Volume 91.3 Mean Platelet Volume 9.3 Monocytes # 0.6 Monocytes % 8.6 Neutrophils # 4.9 Neutrophils % 72.0 Nucleated Red Blood Cells # 0.0 Nucleated Red Blood Cells % 0.0 Phosphorus Level 4.0 Platelet Count 150 Potassium Level 4.1 Red Blood Count 4.21 L Red Cell Distribution Width 12.8 Sodium Level 140 White Blood Count 6.8 Medications Medications Current Medications Ceftriaxone Sodium 50 ml @ 100 mls/hr Q24H IVPB Last administered on t 19:53; Admin Dose 100 MLS/HR; Start 11/03/16 at 19:30 Potassium Chloride/Sodium Chloride (1/2 NS + KCl 20 Meq) 1,000 ml @ 75 mls/hr [id number] IV Last administered on 11/05/16 18:15; Admin Dose 75 MLS/HR; Start at 22:30 Ondansetron HCl (Zofran Tab) 4 mg Q6H PRN PO NAUSEA AND/OR VOMITING; Start 08/10 at 19:30 Acetaminophen (Tylenol Tab) 650 mg Q6H PRN PO PAIN LEVEL 1-3 OR FEVER Last administered on 11/06/16 00:32; Admin Dose 650 MG; Start 11/03/16 at 19:30 Oxycodone/ Acetaminophen (Percocet (5/ 325)) 1 tab Q6H PRN PO MODERATE PAIN LEVEL 4-6 Last administered on 11/05/16 18:08; Admin Dose 1 TAB; Start at 19:30 Docusate Sodium (Colace) 100 mg Q12H PRN PO CONSTIPATION; Start 11/03/16 at 19: 30 Pantoprazole 40 mg 40 mg DAILY@06 PO Last administered on 11/06/16 05:44; Admin Dose 40 MG; Start 11/04/16 at 06:00 Vancomycin HCl/ Sodium Chloride (Vancocin/NS) 250 ml @ 83.333 mls/ hr Q12H IVPB Last administered on 11/06/16 05:44; Admin Dose 83.333 MLS/HR; Start 09/10 at 06:00 Morphine Sulfate (morphine) 4 mg Q4H PRN IV SEVERE PAIN LEVEL 7-10 Last administered on 11/06/16 08:38; Admin Dose 4 MG; Start 11/04/16 at 11:30 SPRING LARRY NP Nov 06, 2016 10:32
[2016-11-06 19:25] VITALS: BP 108/58; RESP 18
--- NOTE | 2016-11-06 19:49 | CONS ---
Date/Time of Note Date/Time of Note DATE: 11/06/16 TIME: 19:47 Consult Date/Type/Reason Admit Date/Time Nov 03, 2016 at 18:41 Type of Consultation: id Subjective awake, c/o generalized pain, L knee pain, L hand less swollen with better ROM, no fevers, nad Objective Vital Signs Date Time Temp Pulse Resp B/P Pulse Ox O2 Delivery O2 Flow Rate FiO2 11/06/16 19:25 99.6 98 18 108/58 94 11/04/16 00:00 Room Air Intake and Output 11/05/16 11/05/16 11/06/16 15:00 23:00 07:00 Intake Total 250 ml 1760 ml 1005 ml Output Total 750 ml 900 ml Balance 250 ml 1010 ml 105 ml Results/Medications Result Diagram: 11/06/1651011/06/16 0511 Results 24 hrs Laboratory Tests Test 11/06/16 05:11 Anion Gap 17 H Basophils # 0.0 Basophils % 0.3 Blood Urea Nitrogen 12 Calcium Level 9.1 Carbon Dioxide Level 27 Chloride Level 100 Creatinine 0.93 Eosinophils # 0.1 Eosinophils % 1.9 Glucose Level 92 Hematocrit 38.5 L Hemoglobin 13.2 L Lymphocytes # 1.2 Lymphocytes % 17.2 Magnesium Level 2.1 Mean Corpuscular Hemoglobin 31.4 Mean Corpuscular Hemoglobin Concent 34.3 Mean Corpuscular Volume 91.3 Mean Platelet Volume 9.3 Monocytes # 0.6 Monocytes % 8.6 Neutrophils # 4.9 Neutrophils % 72.0 Nucleated Red Blood Cells # 0.0 Nucleated Red Blood Cells % 0.0 Phosphorus Level 4.0 Platelet Count 150 Potassium Level 4.1 Red Blood Count 4.21 L Red Cell Distribution Width 12.8 Sodium Level 140 White Blood Count 6.8 Medications Current Medications Ceftriaxone Sodium 50 ml @ 100 mls/hr Q24H IVPB Last administered on 19:53; Admin Dose 100 MLS/HR; Start 11/03/16 at 19:30 Potassium Chloride/Sodium Chloride (1/2 NS + KCl 20 Meq) 1,000 ml @ 75 mls/hr [id number] IV Last administered on 11/06/16 17:27; Admin Dose 75 MLS/HR; Start at 22:30 Ondansetron HCl (Zofran Tab) 4 mg Q6H PRN PO NAUSEA AND/OR VOMITING; Start 08/10 at 19:30 Acetaminophen (Tylenol Tab) 650 mg Q6H PRN PO PAIN LEVEL 1-3 OR FEVER Last administered on 11/06/16 00:32; Admin Dose 650 MG; Start 11/03/16 at 19:30 Oxycodone/ Acetaminophen (Percocet (5/ 325)) 1 tab Q6H PRN PO MODERATE PAIN LEVEL 4-6 Last administered on 11/05/16 18:08; Admin Dose 1 TAB; Start at 19:30 Docusate Sodium (Colace) 100 mg Q12H PRN PO CONSTIPATION; Start 11/03/16 at 19: 30 Pantoprazole 40 mg 40 mg DAILY@06 PO Last administered on 11/06/16 05:44; Admin Dose 40 MG; Start 11/04/16 at 06:00 Vancomycin HCl/ Sodium Chloride (Vancocin/NS) 250 ml @ 83.333 mls/ hr Q12H IVPB Last administered on 11/06/16 17:27; Admin Dose 83.333 MLS/HR; Start 09/10 at 06:00 Morphine Sulfate (morphine) 4 mg Q4H PRN IV SEVERE PAIN LEVEL 7-10 Last administered on 11/06/16 18:10; Admin Dose 4 MG; Start 11/04/16 at 11:30 Assessment/Plan Chief Complaint/Hosp Course ANTIMICROBIALS: 1. IV vancomycin. 2. Rocephin. PHYSICAL EXAMINATION: GENERAL: This is a well-developed, middle-aged white man who is alert, in no distress. HEENT: Head atraumatic, normocephalic. Sclerae anicteric. Buccal mucosa pink. NECK: Supple, trachea midline. CHEST: Rise symmetrical. Breath sounds clear. HEART: S1, S2. ABDOMEN: Soft. Bowel tones present. EXTREMITIES: Left hand with edema, trace erythema, decreased range of motion and severe pain. ASSESSMENT: 1. Left hand cellulitis, status post recent surgery==> improving. 2. Status post systemic inflammatory response syndrome secondary to above. PLAN: The patient remains stable, L hand with improved ROM, continue abx and elevation. Await for hand surgery evaluation. Consider PT DW staff Problems: PAUL RASHID NP Nov 06, 2016 19:48
[2016-11-06] MEDS ORDERED: CEFTRIAXONE 1 GM/50 ML (PMX) 50 ML IVPB SCH (21:00)
[2016-11-07] MEDS: morphine 4 MG/ML VIAL IV PRN ×3 (02:56→13:59)
--- NOTE | 2016-11-07 04:48 | CONS ---
DATE OF ADMISSION: 11/03/2016 DATE OF CONSULTATION: TYPE OF CONSULTATION: Orthopedic. CHIEF COMPLAINT: Left hand pain and swelling. HISTORY: The patient is a 56-year-old male who is 1 week status post surgery on the left hand for r elease of trigger fingers by Dr. Teran. The patient apparently had pain and swelling after the bermeo rgery. The patient was admitted on 11/03/2016 for evaluation. On presentation, swelling was noted in the hand. The patient was started on antibiotics. Today, the patient reports considerable impro vement. Pain and swelling has diminished. There is no numbness in the fingers. There is an intact suture line in the palm first metacarpophalangeal joint with no sign of infection. On examination, there is no fluctuance or any evidence of abscess. No evidence of tenosynovitis. Capillary refill is intact. DIAGNOSIS: Status post trigger finger release with possible cellulitis. At this time, the patient appears to be progressing well. He has responded well to intravenous anti biotics. There is no sign of any abscess that warrants surgical intervention. The patient can be m anaged conservatively on an outpatient basis. Dictated By: KAREN HARRINGTON/NTS Conf#: [id number] DID#: [id number]
[2016-11-07] MEDS: VANCOMYCIN 1.5 GM in SOD CHLORIDE 0.9% 250 ML IVPB SCH (06:20)
[2016-11-07] MEDS: PANTOPRAZOLE (EC) 40 MG TAB PO SCH (06:23)
[2016-11-07] MEDS: 1/2 NS + KCL 20 MEQ 1,000 ML IV SCH (06:30)
[2016-11-07 06:50] LABS: BASOPHILS % 0.2 % (0.0-2.0); EOSINOPHILS # 0.1 10^3/ul (0.0-0.5); EOSINOPHILS % 1.1 % (0.0-7.0); HEMATOCRIT 35.5 % (42.0-52.0); HEMOGLOBIN 12.3 g/dl (14.0-18.0); LYMPHOCYTES # 1.1 10^3/ul (0.8-2.9); LYMPHOCYTES % 14.1 % (15.0-51.0); MEAN CORPUSCULAR HEMOGLOBIN 31.6 pg (29.0-33.0); MEAN CORPUSCULAR HGB CONC 34.5 g/dl (32.0-37.0); MEAN CORPUSCULAR VOLUME 91.5 fl (82.0-101.0); MEAN PLATELET VOLUME 9.2 fl (7.4-10.4); MONOCYTE # 0.8 10^3/ul (0.3-0.9); MONOCYTES % 9.8 % (0.0-11.0); NEUTROPHIL # 5.9 10^3/ul (1.6-7.5); NEUTROPHILS % 74.8 % (39.0-77.0); PLATELET COUNT 157 10^3/UL (140-440); RED BLOOD COUNT 3.88 10^6/ul (4.70-6.10); RED CELL DISTRIBUTION WIDTH 13.1 % (11.5-14.5); UNCORRECTED WBC 7.9 10^3/ul (4.8-10.8); WHITE BLOOD COUNT 7.9 10^3/ul (4.8-10.8)
[2016-11-07 06:51] LABS: POTASSIUM 3.8 mmol/L (3.5-5.1)
[2016-11-07 06:54] LABS: CREATININE 0.99 mg/dl (0.61-1.24)
[2016-11-07 06:55] LABS: CALCIUM 8.6 mg/dl (8.4-10.2); MAGNESIUM 2.2 mg/dl (1.7-2.5); PHOSPHORUS 3.5 mg/dl (2.5-4.9)
[2016-11-07 07:26] LABS: CONDITION 1
[2016-11-07 07:43] VITALS: BP 107/65; RESP 18
--- NOTE | 2016-11-07 12:01 | RADRPT ---
PROCEDURE: US bilateral lower extremity veins. CLINICAL INDICATION: Bilateral leg pain and swelling. TECHNIQUE: Multiple longitudinal and transverse images of the bilateral lower extremity veins were obtained with cabrera scale and color Doppler imaging. The common femoral vein, femoral vein, and popl iteal vein were evaluated. 2D grayscale measurements with compression sonography, color Doppler, and pulsed Doppler with augmentation. COMPARISON: No prior studies are available for comparison. FINDINGS: The bilateral common femoral, femoral and popliteal veins are normally compressible throughout. Col or flow demonstrates normal filling of the vessels. Normal waveforms are visualized and there is no rmal response to augmentation. IMPRESSION: 1. No evidence of deep vein thrombosis involving either lower extremity. RPTAT: QQ .Caleb Cordero MD, MD Date Time Electronically viewed and signed by .Caleb Cordero MD, on 11/07/2016 12:00 .R/
--- NOTE | 2016-11-07 14:50 | PN ---
Date/Time of Note Date/Time of Note DATE: 11/07/16 TIME: 14:47 Assessment/Plan VTE Prophylaxis VTE Prophylaxis Intervention: SCD's Lines/Catheters IV Catheter Type (from Nrs): Peripheral IV Assessment/Plan Chief Complaint/Hosp Course 1. Left hand cellulitis and erythema. Continue antibiotics. The patient recently had a left hand surgery. The patient's surgeon has been notified. The patient was seen by the orthopedic surgeon director executive communications. No evidence of any underlying abscess and no need for any surgical intervention as per the surgeon. 2. Systemic inflammatory response syndrome secondary to #1. Continue antibiotics. 3. Fluid, electrolytes, and nutrition. Continue regular diet. 4. Gastrointestinal and deep venous thrombosis prophylaxis with bilateral sequential compression devices. 5. Gastrointestinal prophylaxis with proton pump inhibitors. 6. Plan. Obtain bilateral lower extremity venous Doppler study. Continue antibiotics. Continue pain control. Elevate LUE. Await ID clearance before discharge. Case discussed with Dr. Deutsch. Made a call to Dr. Teran's office on 11/05/2016. As per the office staff Dr. Teran is out of town. I was able to speak with Dr. Teran's PA later in the afternoon of 11/05/2016. The PA was informed that the patient is running fevers and has significant pain around the surgical site. As per the PA she was going to talk to Dr. Teran and get back to me. Made a call to Dr. Teran's office on 11/06/2016 and informed the front office staff that we have not heard back from Dr. Teran. The staff was also informed that the patient is running high fevers. Around 1040 AM on 11/06/2016, I received a call from REGAN De La Cruz of Dr. Teran. As per Dorothy, Dr. Teran is making arrangements to have one of his colleagues come and see this patient and do the necessary interventions. Dorothy was informed that the hospital management is willing to provide temporary privileges (if they don't have privileges) to the surgeon(s) whom Dr. Teran delegate to see this patient. The patient was evaluated by the on-call orthopedic surgeon as per the request of Dr. Teran. As per the surgeon, the patient does not have any evidence of any underlying abscess. The patient does not require any surgical interventions. Problems: Subjective 24 Hr Interval Summary Free Text/Dictation Left arm pain better controlled. Was complaining of bilateral lower extremity pain. Exam/Review of Systems Vital Signs Vitals Vital Signs Date Time Temp Pulse Resp B/P Pulse Ox O2 Delivery O2 Flow Rate FiO2 11/07/16 07:43 99.0 87 18 107/65 95 11/04/16 00:00 Room Air Intake and Output 11/06/16 11/06/16 11/07/16 15:00 23:00 07:00 Intake Total 250 ml 1425 ml 980 ml Output Total 1150 ml 500 ml Balance 250 ml 275 ml 480 ml Exam GENERAL: This is a slightly obese male lying in bed in no apparent distress. HEENT: Head normocephalic and atraumatic. Eyes: Anicteric sclerae. Conjunctivae clear. ENT: Nasal septum is midline. Oral mucosa is moist. NECK: Supple. No JVD noticed. RESPIRATORY: Bilaterally clear to auscultation. No adventitious breath sounds heard. No use of accessory muscles of respiration. CARDIAC: Regular rate and rhythm. No murmurs. ABDOMEN: Soft, nontender, and nondistended. Bowel sounds positive in all 4 quadrants. GENITOURINARY: Deferred. EXTREMITIES: No cyanosis, no clubbing. Bilateral lower extremity pedal pulses palpable. Left palmar edema. No loss of sensation on the fingers of the left hand. Range of motion of the fingers and left hand improved. NEUROLOGIC: The patient is awake, alert, and oriented. Cranial nerves are grossly intact. Results Result Diagram: 11/07/16 0515 11/07/16 0515 Results 24 hrs Laboratory Tests Test 11/07/16 05:15 Anion Gap 15 Basophils # 0.0 Basophils % 0.2 Blood Urea Nitrogen 15 Calcium Level 8.6 Carbon Dioxide Level 28 Chloride Level 99 Creatinine 0.99 Eosinophils # 0.1 Eosinophils % 1.1 Glucose Level 105 Hematocrit 35.5 L Hemoglobin 12.3 L Lymphocytes # 1.1 Lymphocytes % 14.1 L Magnesium Level 2.2 Mean Corpuscular Hemoglobin 31.6 Mean Corpuscular Hemoglobin Concent 34.5 Mean Corpuscular Volume 91.5 Mean Platelet Volume 9.2 Monocytes # 0.8 Monocytes % 9.8 Neutrophils # 5.9 Neutrophils % 74.8 Nucleated Red Blood Cells # 0.0 Nucleated Red Blood Cells % 0.0 Phosphorus Level 3.5 Platelet Count 157 Potassium Level 3.8 Red Blood Count 3.88 L Red Cell Distribution Width 13.1 Sodium Level 138 White Blood Count 7.9 Medications Medications Current Medications Potassium Chloride/Sodium Chloride (1/2 NS + KCl 20 Meq) 1,000 ml @ 75 mls/hr [id number] IV Last administered on 11/06/16 17:27; Admin Dose 75 MLS/HR; Start at 22:30 Ondansetron HCl (Zofran Tab) 4 mg Q6H PRN PO NAUSEA AND/OR VOMITING; Start 08/10 at 19:30 Acetaminophen (Tylenol Tab) 650 mg Q6H PRN PO PAIN LEVEL 1-3 OR FEVER Last administered on 11/06/16 00:32; Admin Dose 650 MG; Start 11/03/16 at 19:30 Oxycodone/ Acetaminophen (Percocet (5/ 325)) 1 tab Q6H PRN PO MODERATE PAIN LEVEL 4-6 Last administered on 11/05/16 18:08; Admin Dose 1 TAB; Start at 19:30 Docusate Sodium (Colace) 100 mg Q12H PRN PO CONSTIPATION; Start 11/03/16 at 19: 30 Pantoprazole 40 mg 40 mg DAILY@06 PO Last administered on 11/07/16 06:23; Admin Dose 40 MG; Start 11/04/16 at 06:00 Vancomycin HCl/ Sodium Chloride (Vancocin/NS) 250 ml @ 83.333 mls/ hr Q12H IVPB Last administered on 11/07/16 06:20; Admin Dose 83.333 MLS/HR; Start 09/10 at 06:00 Morphine Sulfate 4 mg 4 mg Q4H PRN IV SEVERE PAIN LEVEL 7-10 Last administered on 11/07/16 13:59; Admin Dose 4 MG; Start 11/04/16 at 11:30 Ceftriaxone Sodium (Rocephin) 50 ml @ 100 mls/hr Q24H IVPB Last administered on 11/06/16 22:11; Admin Dose 100 MLS/HR; Start 11/06/16 at 21:00 SPRING LARRY NP Nov 07, 2016 14:49
--- NOTE | 2016-11-07 16:54 | CONS ---
Date/Time of Note Date/Time of Note DATE: 11/07/16 TIME: 16:53 Assessment/Plan Assessment/Plan Chief Complaint/Hosp Course ID PROGRESS NOTE TOTAL ABX DAY #4.5 => Vanco IV + Ceftriaxone 24H INTERVAL SUMMARY * Awake, alert, VSS, NAD, no fevers, WBC normalized * Tells me too much fluid with IV ABX w/BLEXT edema * See by surgeon today w/Dx cellulitis hand => no evidence abscess, no tenosynovitis, no osteomyelitis PHYSICAL EXAMINATION: GENERAL: 56 yo M HEENT: Unremarkable NECK: Supple, trachea midline. CHEST: Rise symmetrical without dyspnea HEART: RRR ABDOMEN: Soft, overweight EXTREMITIES: Warm, Bilateral hands with dirty fingernails, left hand palmar/ wrist surgical incision well healed, no erythema, no drainage ID ASSESSMENT: 56 yo M 1. Left hand cellulitis, status post recent surgery last week for trigger release RESOLVING * BCx (-) 2. Status post systemic inflammatory response syndrome secondary to above. * UA & culture (-) 3. BLEXT Edema 2n2 IVF fluids + IV ABX 4. Poor personal hygiene with dirty fingernails = increases risk of hand cellulitis post surgical incision INVASIVES: *PIV CURRENT ABX: Vanco IV + Ceftriaxone s/p ID RECOMMENDATIONS: DC IV ABX -> Taper to Bactrim DS BID w/full glass H20 + Keflex 500mg po TID until last day 11/12/16 May DC home on PO ABX when cleared by Primary MD Hand hygiene tonight * => Order for RN to assist patient with warm H20 +Hibiclens hand soak, manicure w/soft toothbrush set up. I instructed patient on need for hand hygiene at home. Will ask nursing to reinforce. ABX Plan of care discussed w/patient who concurs and expresses gratitude . Problems: Consultation Date/Type/Reason Admit Date/Time Nov 03, 2016 at 18:41 Initial Consult Date Type of Consultation: id Exam/Review of Systems Vital Signs Vitals Vital Signs Date Time Temp Pulse Resp B/P Pulse Ox O2 Delivery O2 Flow Rate FiO2 11/07/16 07:43 99.0 87 18 107/65 95 11/04/16 00:00 Room Air Intake and Output 11/06/16 11/06/16 11/07/16 15:00 23:00 07:00 Intake Total 250 ml 1425 ml 980 ml Output Total 1150 ml 500 ml Balance 250 ml 275 ml 480 ml Results Result Diagram: 11/07/16 0515 11/07/16 0515 Results 24 hrs Laboratory Tests Test 11/07/16 05:15 Anion Gap 15 Basophils # 0.0 Basophils % 0.2 Blood Urea Nitrogen 15 Calcium Level 8.6 Carbon Dioxide Level 28 Chloride Level 99 Creatinine 0.99 Eosinophils # 0.1 Eosinophils % 1.1 Glucose Level 105 Hematocrit 35.5 L Hemoglobin 12.3 L Lymphocytes # 1.1 Lymphocytes % 14.1 L Magnesium Level 2.2 Mean Corpuscular Hemoglobin 31.6 Mean Corpuscular Hemoglobin Concent 34.5 Mean Corpuscular Volume 91.5 Mean Platelet Volume 9.2 Monocytes # 0.8 Monocytes % 9.8 Neutrophils # 5.9 Neutrophils % 74.8 Nucleated Red Blood Cells # 0.0 Nucleated Red Blood Cells % 0.0 Phosphorus Level 3.5 Platelet Count 157 Potassium Level 3.8 Red Blood Count 3.88 L Red Cell Distribution Width 13.1 Sodium Level 138 White Blood Count 7.9 Medications Medications Current Medications Potassium Chloride/Sodium Chloride (10/26 NS + KCl 20 Meq) 1,000 ml @ 75 mls/hr [id number] IV Last administered on 11/06/16 17:27; Admin Dose 75 MLS/HR; Start at 22:30 Ondansetron HCl (Zofran Tab) 4 mg Q6H PRN PO NAUSEA AND/OR VOMITING; Start 08/10 at 19:30 Acetaminophen (Tylenol Tab) 650 mg Q6H PRN PO PAIN LEVEL 1-3 OR FEVER Last administered on 11/06/16 00:32; Admin Dose 650 MG; Start 11/03/16 at 19:30 Oxycodone/ Acetaminophen (Percocet (5/ 325)) 1 tab Q6H PRN PO MODERATE PAIN LEVEL 4-6 Last administered on 11/05/16 18:08; Admin Dose 1 TAB; Start at 19:30 Docusate Sodium (Colace) 100 mg Q12H PRN PO CONSTIPATION; Start 11/03/16 at 19: 30 Pantoprazole 40 mg 40 mg DAILY@06 PO Last administered on 11/07/16 06:23; Admin Dose 40 MG; Start 11/04/16 at 06:00 Vancomycin HCl/ Sodium Chloride (Vancocin/NS) 250 ml @ 83.333 mls/ hr Q12H IVPB Last administered on 11/07/16 06:20; Admin Dose 83.333 MLS/HR; Start 09/10 at 06:00 Morphine Sulfate 4 mg 4 mg Q4H PRN IV SEVERE PAIN LEVEL 7-10 Last administered on 11/07/16 13:59; Admin Dose 4 MG; Start 11/04/16 at 11:30 Ceftriaxone Sodium (Rocephin) 50 ml @ 100 mls/hr Q24H IVPB Last administered on 11/06/16 22:11; Admin Dose 100 MLS/HR; Start 11/06/16 at 21:00 LORI HAMILTON NP Nov 07, 2016 16:54
[2016-11-07 20:02] VITALS: BP 130/78; RESP 16
[2016-11-07] MEDS: TRIMETHOPRIM/SULFAMETHOX (DS) TAB PO SCH (20:10)
[2016-11-07] MEDS: OXYCODONE/ACETAMINOPHEN (5/325) TAB PO PRN (20:10)
[2016-11-07] MEDS: CEPHALEXIN 500 MG CAP PO SCH (22:32)
[2016-11-08 05:04] LABS: BASOPHILS % 0.3 % (0.0-2.0); EOSINOPHILS # 0.2 10^3/ul (0.0-0.5); EOSINOPHILS % 3.5 % (0.0-7.0); HEMATOCRIT 37.3 % (42.0-52.0); LYMPHOCYTES # 1.2 10^3/ul (0.8-2.9); MEAN CORPUSCULAR HEMOGLOBIN 31.8 pg (29.0-33.0); MEAN CORPUSCULAR HGB CONC 34.8 g/dl (32.0-37.0); MEAN CORPUSCULAR VOLUME 91.3 fl (82.0-101.0); MEAN PLATELET VOLUME 8.8 fl (7.4-10.4); MONOCYTE # 0.6 10^3/ul (0.3-0.9); NEUTROPHIL # 4.6 10^3/ul (1.6-7.5); NEUTROPHILS % 69.2 % (39.0-77.0); PLATELET COUNT 175 10^3/UL (140-440); RED BLOOD COUNT 4.08 10^6/ul (4.70-6.10); RED CELL DISTRIBUTION WIDTH 12.9 % (11.5-14.5); UNCORRECTED WBC 6.7 10^3/ul (4.8-10.8); WHITE BLOOD COUNT 6.7 10^3/ul (4.8-10.8)
[2016-11-08 05:05] LABS: CONDITION 1
[2016-11-08 05:16] LABS: MAGNESIUM 2.2 mg/dl (1.7-2.5)
[2016-11-08 05:39] LABS: POTASSIUM 4.7 mmol/L (3.5-5.1)
[2016-11-08 05:42] LABS: CREATININE 0.99 mg/dl (0.61-1.24)
[2016-11-08 05:43] LABS: CALCIUM 9.2 mg/dl (8.4-10.2)
[2016-11-08] MEDS: PANTOPRAZOLE (EC) 40 MG TAB PO SCH (06:01)
[2016-11-08] MEDS: CEPHALEXIN 500 MG CAP PO SCH ×2 (06:01→13:40)
[2016-11-08 08:16] VITALS: BP 119/71; RESP 24
[2016-11-08] MEDS: TRIMETHOPRIM/SULFAMETHOX (DS) TAB PO SCH (09:27)
--- NOTE | 2016-11-08 11:36 | PDOCDIS ---
Discharge Instructions DIAGNOSIS Discharge Diagnosis: Status post trigger finger release with possible underlying cellulitis. CONDITION Patient Condition: Stable HOME CARE INSTRUCTIONS: Special Diet: Regular OTHER ORDERS: Other Orders: 1. Take pain medications as needed. Complete the course of antibiotics. 2. Regular diet as tolerated. 3. Keep the left arm elevated while resting. Activity restrictions of the left hand as per the hand surgeon. 4. Follow-up with Dr. Teran scheduled. 5. Go to the nearest emergency room or call Dr. Teran if you continue to have fevers, if the pain is not subsiding with analgesics, if you have increasing difficulty in movement of the left wrist and fingers of the left hand , or any other unusual signs/symptoms. SPRING LARRY NP Nov 08, 2016 11:35
[2016-11-08] MEDS ORDERED: CEPH500C PO (11:39)
[2016-11-08] MEDS ORDERED: BACTDS PO (11:39)
[2016-11-08] MEDS ORDERED: HYDR-906 PO (11:39)
--- NOTE | 2016-11-08 13:25 | CONS ---
Date/Time of Note Date/Time of Note DATE: 11/08/16 TIME: 13:23 Assessment/Plan Assessment/Plan Chief Complaint/Hosp Course ID PROGRESS NOTE TOTAL ABX DAY #5.5 => Bactrim + Keflex s/p Vanco IV + Ceftriaxone 24H INTERVAL SUMMARY * Feeling well -- DC home on PO ABX pending => Visitors present * Awake, alert, VSS, NAD, no fevers, WBC normalized * Surgeon note: Dx cellulitis hand => no evidence abscess, no tenosynovitis, no osteomyelitis * s/p Hibiclens hand hygiene last night PHYSICAL EXAMINATION: GENERAL: 56 yo M HEENT: Unremarkable NECK: Supple, trachea midline. CHEST: Rise symmetrical without dyspnea HEART: RRR ABDOMEN: Soft, overweight EXTREMITIES: Warm, Bilateral hands with dirty fingernails, left hand palmar/ wrist surgical incision well healed, no erythema, no drainage ID ASSESSMENT: 56 yo M 1. Left hand cellulitis, status post recent surgery last week for trigger release RESOLVING * BCx (-) 2. Status post systemic inflammatory response syndrome secondary to above. * UA & culture (-) 3. BLEXT Edema 2n2 IVF fluids + IV ABX 4. Poor personal hygiene with dirty fingernails = increases risk of hand cellulitis post surgical incision INVASIVES: *PIV CURRENT ABX: Bactrim + Keflex PO s/p Vanco IV + Ceftriaxone s/p ID RECOMMENDATIONS: Bactrim DS BID w/full glass H20 + Keflex 500mg po TID until last day 11/12/16 May DC home on PO ABX when cleared by Primary MD Hand hygiene performed last night * => Ordered for RN to assist patient with warm H20 +Hibiclens hand soak, manicure w/soft toothbrush set up. I instructed patient on need for hand hygiene at home. Will ask nursing to reinforce. ABX Plan of care discussed w/patient who concurs and expresses gratitude . Problems: Consultation Date/Type/Reason Admit Date/Time Nov 03, 2016 at 18:41 Type of Consultation: id Exam/Review of Systems Vital Signs Vitals Vital Signs Date Time Temp Pulse Resp B/P Pulse Ox O2 Delivery O2 Flow Rate FiO2 11/08/16 08:16 99.0 82 24 119/71 95 11/08/16 08:15 Room Air Intake and Output 11/07/16 11/07/16 11/08/16 15:00 23:00 07:00 Intake Total 250 ml 730 ml 540 ml Output Total 650 ml 725 ml Balance 250 ml 80 ml -185 ml Results Result Diagram: 11/08/16 0429 11/08/16 0429 Results 24 hrs Laboratory Tests Test 11/08/16 04:29 Anion Gap 18 H Basophils # 0.0 Basophils % 0.3 Blood Urea Nitrogen 14 Calcium Level 9.2 Carbon Dioxide Level 30 Chloride Level 100 Creatinine 0.99 Eosinophils # 0.2 Eosinophils % 3.5 Glucose Level 95 Hematocrit 37.3 L Hemoglobin 13.0 L Lymphocytes # 1.2 Lymphocytes % 18.0 Magnesium Level 2.2 Mean Corpuscular Hemoglobin 31.8 Mean Corpuscular Hemoglobin Concent 34.8 Mean Corpuscular Volume 91.3 Mean Platelet Volume 8.8 Monocytes # 0.6 Monocytes % 9.0 Neutrophils # 4.6 Neutrophils % 69.2 Nucleated Red Blood Cells # 0.0 Nucleated Red Blood Cells % 0.0 Phosphorus Level 4.0 Platelet Count 175 Potassium Level 4.7 Red Blood Count 4.08 L Red Cell Distribution Width 12.9 Sodium Level 143 White Blood Count 6.7 Medications Medications Current Medications Ondansetron HCl (Zofran Tab) 4 mg Q6H PRN PO NAUSEA AND/OR VOMITING; Start 08/10 at 19:30 Acetaminophen (Tylenol Tab) 650 mg Q6H PRN PO PAIN LEVEL 1-3 OR FEVER Last administered on 11/06/16 00:32; Admin Dose 650 MG; Start 11/03/16 at 19:30 Oxycodone/ Acetaminophen (Percocet (5/ 325)) 1 tab Q6H PRN PO MODERATE PAIN LEVEL 4-6 Last administered on 11/07/16 20:10; Admin Dose 1 TAB; Start at 19:30 Docusate Sodium (Colace) 100 mg Q12H PRN PO CONSTIPATION; Start 11/03/16 at 19: 30 Pantoprazole (Protonix Tab) 40 mg DAILY@06 PO Last administered on 11/08/16 06 :01; Admin Dose 40 MG; Start 11/04/16 at 06:00 Morphine Sulfate (morphine) 4 mg Q4H PRN IV SEVERE PAIN LEVEL 7-10 Last administered on 11/07/16 13:59; Admin Dose 4 MG; Start 11/04/16 at 11:30 Trimethoprim/ Sulfamethoxazole (Bactrim (Ds)) 1 tab BID PO Last administered on 11/08/16 09:27; Admin Dose 1 TAB; Start 11/07/16 at 21:00; Stop 11/12/16 at 23:00 Cephalexin (Keflex) 500 mg Q8 PO Last administered on 11/08/16 06:01; Admin Dose 500 MG; Start 11/07/16 at 22:00; Stop 11/12/16 at 23:00 LORI HAMILTON NP Nov 08, 2016 13:25
[2016-11-08] MEDS: OXYCODONE/ACETAMINOPHEN (5/325) TAB PO PRN (14:03)
--- NOTE | 2016-11-09 14:51 | DS ---
DATE OF ADMISSION: 11/03/2016 DATE OF DISCHARGE: 11/08/2016 FINAL DIAGNOSES 1. Left hand cellulitis. 2. Recent surgical repair of trigger finger of the left hand. 3. Status post systemic inflammatory response syndrome. CONSULTATIONS: 1. Dr. Bernardo Plummer, infectious diseases. 2. Dr. Elena Schmidt, orthopedic surgery. 3. Stacie Parnell, ASSESSMENT NURSE PRACTITIONER for infectious diseases. 3. Tona Kim, ASSESSMENT NURSE PRACTITIONER for infectious diseases. HOSPITAL COURSE: This is a 56-year-old gentleman with no significant past medical history, but surgical history of left hand surgery secondary to trigger finger on 10/29/[address] Teran. He was discharged home and has been having increased pain, swelling, and discomfort in his left hand. Hence, the patient went to see at the PA at the surgeon's office, and he was sent to the hospital for further evaluation and treatment. Upon arrival to the ER, the patient underwent a CT scan of the left upper extremity that showed no evidence of soft tissue abscess and no evidence of osteomyelitis. The patient's left hand x-ray showed metal surgical device in the fifth proximal phalanx. The patient was also noticed to have some febrile episodes. The patient was admitted to inpatient medical/surgical floor. An infectious disease consult was called on this patient. Pancultures were ordered on this patient. The patient's doss cultures remained negative. However, the patient continued to have febrile episodes with temperature as high as 101.3. The patient was maintained on antibiotics as per infectious diseases. We have been trying to have Dr. Teran or his assistant corporation counsel come and see the patient in-house since the patient was having significant left hand pain as well as febrile illnesses. Dr. Teran already knows about the patient' admission to the hospital. Nevertheless, nobody has come and seen the patient until 11/05/2016. A call was made to Dr. Teran's office. I informed the doctor's office about the patient's condition. However, the doctor's office informed me that Dr. Teran is out of town. Hence, I was able to talk to the PADorothy, on 11/05/2016. On 11/05/2016, also nobody came and evaluated the patient. Hence, a call was made to Dr. Teran's office on 11/06/2016 regarding the patient's condition. Around 10:40 a.m. on 11/06/2016, I received a call back from Dorothy the PA for Dr. Teran, and she verbalized that they are making arrangements for someone who is covering for Dr. Teran to come and see the patient. On 11/06/2016, Dr. Schmidt came and saw the patient. As per Dr. Schmidt, there was no sign of any abscess, and there is no indication for any surgical intervention. He recommended to continue the patient on antibiotics. After 11/06/2016, the patient's symptoms improved significantly, and the patient 's left hand pain improved. The patient was cleared by consultants to be discharged home on oral antibiotics. Meanwhile, the patient also had some bilateral lower extremity edema with some pain. The etiology of this remained unclear. The patient underwent a bilateral lower extremity venous Doppler study that was negative for any DVT. The patient remained stable. The patient had no febrile episodes since 11/06/2016. The patient's left hand pain is well controlled. PLAN: Patient will be discharged home today. The patient was instructed to take pain medications as needed and to complete the course of antibiotics. He was instructed to follow a regular diet as tolerated. He was instructed to keep the left arm elevated while resting. Activity restrictions of the left hand are as per the hand surgeon. The patient was instructed to follow up with Dr. Teran as scheduled. He was instructed to go to the nearest emergency room or to call Dr. Teran if he continues to have fevers, if the left hand pain is not subsiding with analgesics, if he has any increasing difficulty in movement of the left wrist and fingers, or any other unusual signs or symptoms. The patient verbalized understanding of his discharge instructions. CONDITION AT DISCHARGE: Stable. DISCHARGE MEDICATIONS 1. Keflex 500 mg p.o. q. 8 hours x5 days. 2. [place] 5/325 one tablet p.o. q. 6 hours p.r.n. pain (#20 tablets). 3. Bactrim-DS 800/150 one tablet p.o. b.i.d. x5 days. PERTINENT LABORATORY AND DIAGNOSTIC DATA: 1. Blood culture x2 negative. 2. Urine culture negative. 3. Left upper extremity CT scan. No evidence of soft tissue abscess. No evidence of osteomyelitis. 4. Left hand x-ray. Metal surgical device in the fifth proximal phalanx. 5. Chest x-ray: Mild left basilar atelectasis or pneumonia prior cervical spine surgery. 6. Bilateral lower extremity venous Doppler study. No evidence of DVT involving either lower extremity. 7. Latest CBC: WBC 6.7, hemoglobin 13.0, hematocrit 37.3, platelet count 175. 8. Latest BMP: Sodium 140, potassium 4.1, chloride 100, carbon dioxide 26, anion gap 17, BUN 12, creatinine 0.93, glucose 92, calcium 9.1, phosphorus 3.5, magnesium 2.0. 9. Latest fasting lipid panel: Triglycerides 77, total cholesterol 158, LDL 109, HDL 34. Hemoglobin A1c 5.4. I would like thank all the consultants who have seen the patient and made recommendations. The case and management of this patient was fully discussed with Dr Metzger. Approximately 40 minutes was spent on coordinating the discharge on this patient. SPRING METZGER MD, AM/DORINDA Conf#: [id number] DID#: [id number]
== END 2016-11-08 16:15 | disposition home or self-care (01) | DRG 603 ==
LOC: E/R 16:17 → MS2 18:41
PROVIDERS: ADMIT Family Medicine; ATTEND Family Medicine
DX: L03.114 Cellulitis of left upper limb (principal); Z98.890 Other specified postprocedural states
CPT/HCPCS: 36415; 71010; 73200; 80048; 80053; 80061; 80202; 81001; 81003; 83036; 83605; 83735; 84100; 85025; 85610; 85730; 87040; 87086; 93005; 93965; 96374; 96375; 96376; J0696; J2270; J2405; J2543; J3370; J3480; J7040; J7050; Q9967